=== PATIENT | female | born 1985 | race Caucasian/White ===

== ENCOUNTER → 2020-04-07 | Outpatient (CLI) | payer OTHER ==
--- NOTE | 2020-04-07 14:09 | RADIOLOGY REPORT (SQ) ---
EXAM DESCRIPTION: MRI BREAST BILATERAL W/WO IMAGES COMPLETED DATE/TIME: 04/07/2020 11:32 am REASON FOR STUDY: Z80.3 FAMILY HISTORY OF MALIGNANT NEOPLASM OF BREAST Z80.3 FAMILY HISTORY OF FREDDY GNANT NEOPLASM OF BREAST COMPARISON: Left breast and axilla ultrasound 04/19/2017 Right breast ultrasound 09/05/2018 Bilateral screening mammography 09/05/2018, 11/13/2019 PATHOLOGIC CORRELATION: No prior biopsy CONTRAST TYPE AND DOSE: 20 mL Prohance. RENAL FUNCTION: None required. The patient is less than 50 years old. TECHNIQUE: MR imaging performed with a dedicated breast coil. Pre contrast T1 and T2 weighted images . Pre contrast and post contrast enhanced T1 weighted images with fat saturation. Subtraction images, 3D thick and thin MIPS, and kinetic analysis performed on an independent workstat ion. ([employer] workstation) Magnet strength: 1.5 T LIMITATIONS: None. FINDINGS: BREAST DENSITY: d. The breasts are extremely dense, which lowers the sensitivity of mammog angel. BACKGROUND PARENCHYMAL ENHANCEMENT:Mild. RIGHT BREAST: No enhancing or suspicious masses. In particular, no masses are identified over the lo wer half right breast. No clumped, regional/segmental ductal enhancement. CHEST WALL: Normal tissue planes. No abnormal internal mammary nodes. AXILLA: Normal axillary and retro-pectoral nodes. LEFT BREAST:No enhancing or suspicious masses. Benign is 9 x 5 mm intramammary lymph node axial imag e 137, along the upper inner quadrant, best shown on axial image 137. This is about 5 cm from the ni pple. No clumped, regional/segmental ductal enhancement. CHEST WALL: Normal tissue planes. No abnormal internal mammary nodes. AXILLA: Normal axillary and retro-pectoral nodes. OTHER:No identified liver, bone, or lung lesions. No other significant incidental findings. IMPRESSION: NORMAL MR OF THE BREASTS. BIRAD: RIGHT BREAST: 1 Negative. LEFT BREAST: 2 Benign findings. RECOMMENDATION: RECOMMENDED FOLLOW-UP: Clinical follow-up for palpable abnormality as per Dr. Lamine kothari. Otherwise, please continue yearly bilateral tomosynthesis in October 2020 TECHNICAL DOCUMENTATION: JOB ID: [id number] 2010 [employer]- All Rights Reserved Reading location - IP/workstation name: [email or web address]
== END ==
LOC: RAD 10:07
PROVIDERS: ATTEND Surgery
DX: Z80.3 Family history of malignant neoplasm of breast (principal)
CPT/HCPCS: 77049; A9576